=== PATIENT | male | born 1990 | race Caucasian/White ===

== ENCOUNTER 2017-08-01 18:06 | Emergency (ER) | payer BC ==
[~2017-08-01] VITALS: Ht 172.7 cm; Wt 70.3 kg
[2017-08-01] MEDS ORDERED: TAMIFLU75 MG PO (18:34)
[2017-08-01] MEDS ORDERED: ONDANSETRON ODT8 MG PO (18:34)
== END 2017-08-01 19:37 | disposition home or self-care (01) ==
LOC: ED 18:06
DX: J11.1 Influenza due to unidentified influenza virus with other respiratory manifestations (principal); Z88.5 Allergy status to narcotic agent
CPT/HCPCS: 96361; 96374; 96375; 99283; J1885; J2405; J7030